=== PATIENT | female | born 1995 | race Caucasian/White ===

== ENCOUNTER 2024-07-21 15:56 | Emergency (ER) | payer MEDICAID, SELFPAY ==
[2024-07-21 15:58] VITALS: BMI 27.4
[2024-07-21 16:42] VITALS: BP 110/76; PULSE 83; RESP 16; TEMP 37; O2SAT 98; BMI 28.5
--- NOTE | 2024-07-21 17:03 | XR_ITS ---
Examination: Abdomen sonogram, Limited Date and time of exam: July 21, 2024 1751 hrs. Indications: Bilateral abdominal pain beginning 2 days ago Technique: Real-time downing scale transabdominal sonographic images of the upper abdomen obtained. Findings: 11 mm gallbladder sludge ball No gallstones Normal gallbladder wall Common bile duct 0.3 cm Pancreatic head 2.5 cm Liver 16.4 cm smooth contour No focal liver lesions Normal hepatopedal portal venous flow Impression: Gallbladder sludge ball Negative for cholelithiasis, negative for cholecystitis
--- NOTE | 2024-07-21 17:03 | PD.EDRME ---
Rapid Medical Screening Exam RME Arrival date/time: 07/21/24 15:56 29-year-old female presents to the emergency department today with complaints of abdominal pain Chief Complaint: Abdominal Pain Vital signs: Vital Signs Temperature 98.6 F 07/21/24 16:42 Pulse Rate 83 07/21/24 16:42 Respiratory Rate 16 07/21/24 16:42 Blood Pressure 110/76 07/21/24 16:42 Pulse Oximetry (%) 98 07/21/24 16:42 Oxygen Delivery Method Room Air 07/21/24 16:42
[2024-07-21 17:27] LABS: Collection Type, Urine Clean Catch
[2024-07-21 17:41] LABS: Basophils # (Auto) 0.1 Thou/mm3 (0.0-0.2); Basophils % (Auto) 1 % (0-2.5); Eosinophils # (Auto) 0.1 Thou/mm3 (0.0-0.5); Eosinophils % (Auto) 1 % (0-10); Hematocrit 43.1 % (36.0-46.0); Hemoglobin 14.9 g/dL (12.0-16.0); Immature Granulocytes % (Auto) 0 % (0-0); Immature Granulocytes Auto 0.04 Thou/mm3 (0.00-0.00); Lymphocytes # (Auto) 1.8 Thou/mm3 (1.0-4.8); Lymphocytes % (Auto) 14 % (10-50); Mean Corpuscular HGB Conc 34.6 g/dl (31.0-37.0); Mean Corpuscular Hemoglobin 30.8 pg (25.0-35.0); Mean Corpuscular Volume 89 fL (80-100); Monocytes # (Auto) 0.6 Thou/mm3 (0.0-0.8); Monocytes % (Auto) 5 % (0-12); Neutrophils # (Auto) 9.6 Thou/mm3 (1.8-7.7); Neutrophils % (Auto) 79 % (37-80); Nucleated Red Blood Cell % 0 /100 WBC (0); Platelet Count 405 Thou/mm3 (140-440); RDW Standard Deviation 40.5 fL (36.4-46.3); Red Blood Count 4.84 Miln/mm3 (4.00-5.20); White Blood Count 12.2 Thou/mm3 (3.6-11.0)
[2024-07-21 17:44] LABS: HCG Qualitative,Urine Negative
[2024-07-21 17:53] LABS: Bilirubin,Urine Negative (Negative); Blood,Urine 1+ (Negative); Clarity,Urine Clear (Clear/Hazy); Color,Urine Yellow (Lt Yel-Yel); Culture Indicated,Urine Not Indicated; Glucose, Urine Negative (Negative); Ketones,Urine 1+ (Negative); Leukocyte Esterase,Urine Positive (Negative); Nitrite,Urine Negative (Negative); Protein,Urine Negative (Neg - Trace); RBC,Urine 7 /hpf (0-3); Specific Gravity,Urine 1.016 (1.001-1.035); Squamous Epithelial Cell,Urine 12 /hpf (0-5); Urobilinogen,Urine Negative mg/dL (0.0-1.0); WBC,Urine 5 /hpf (0-5)
[2024-07-21 18:02] LABS: Alanine Aminotransferase 10 U/L (10-49); Albumin, Serum 4.7 gm/dL (3.5-5.0); Albumin/Globulin Ratio 1.5 (1.2-2.2); Alkaline Phosphatase 69 U/L (46-116); Anion Gap 7 (7-16); Aspartate Amino Transferase 13 U/L (0-34); BUN/Creatinine Ratio 9 Ratio (12-20); Bilirubin,Total 0.6 mg/dL (0.3-1.2); Blood Urea Nitrogen 7 mg/dL (9-23); Calcium 9.6 mg/dL (8.3-10.6); Calcium (Corrected) 9.6 mg/dL (8.5-10.1); Carbon Dioxide 25.1 mMol/L (20.0-31.0); Chloride 106 mMol/L (98-107); Creatinine (Component) 0.8 mg/dL (0.6-1.3); Estimated Creatinine Clearance 99.4 mL/min (>60); Globulin 3.2 gm/dL (2.3-3.5); Glucose 90 mg/dL (74-106); Lipase 29 U/L (12-53); Osmolality,Calculated 273 (275-295); Potassium 3.8 mMol/L (3.4-5.1); Sodium 138 mMol/L (136-145); Total Protein 7.9 gm/dL (5.7-8.2); eGFR > 60 See Note
[2024-07-21 19:42] VITALS: BP 133/90; PULSE 77; RESP 17; TEMP 36.8; O2SAT 98
--- NOTE | 2024-07-22 00:22 | EDNOTE_ITS ---
ED Abdominal Pain RME/HPI General Chief Complaint: Abdominal Pain Stated complaint: RIGHT LOWER ABD PAIN, DECREASE APPETTITE Time seen by provider: 07/21/24 20:42 Arrival date/time: 07/21/24 15:56 Source: patient Mode of arrival: ambulatory Limitations: no limitations RME / HPI RME / HPI narrative: 07/21/24 15:56 29-year-old female presents to the emergency department today with complaints of abdominal pain. Dr. Garcia?s Main ED Evaluation: 29-year-old female presents with a loss of appetite and dull right back pain th at began yesterday. She denies consuming greasy or fatty foods, as well as nausea or vomiting. She denies any other medical complaints. She has no history of prior surgeries and has not taken ibuprofen or acetaminophen for symptom relief. Related Data Previous Rx's ?Medication ?Instructions ?Recorded ondansetron 4 mg disintegrating 4 mg PO Q8H PRN nausea and 10/11/23 tablet vomiting #30 tabs Allergies Allergy/AdvReac Type Severity Reaction Status Date / Time No Known Allergies Allergy Verified 07/21/24 15:57 Review of Systems Review of Systems Systems Reviewed: All systems reviewed, normal except as documented Past Medical History Social History SMOKING STATUS: Never smoker ED Exam Narrative Physical exam: GENERAL: In general the patient is awake, interactive, in an emergency department gurney. HEAD/EYES/EARS/NOSE/THROAT: normo-cephalic, atraumatic, mucus membranes are moist. No cervical tenderness palpation midline. Supple neck. CARDIOVASCULAR: regular rate and regular rhythm, no murmurs, heart sounds are not distant, strong pulses in all four extremities that are equal and symmetric bilateral upper and lower extremities, normal capillary refill. CHEST/PULMONARY: normal chest rise and fall, good air movement, clear to auscultation bilaterally, normal inspiratory to expiratory ratios without evidence of respiratory distress. ABDOMEN: soft, not tender, no masses appreciated. no rebound, no callaway's sign. BACK: normal range of motion without pain. no CVA tenderness. NEUROLOGICAL: cranio-facial features are symmetric, moves all four extremities equally without obvious limitations or weakness. EXTREMITY: no tenderness to palpation over the long bones or large joints of the bilateral upper and lower extremities, no joint swelling, no joint erythema, no signs of trauma, no unilateral leg swelling and no peripheral edema. SKIN: warm, dry, well-perfused, no jaundice, no rash, no telangiectasias or petechia. PSYCH: calm, cooperative, no evidence of psychosis or agitation General Limitations: Present no limitations Course Quality Measures none Orders Category Date Time Status US gall bladder Stat Exams 07/21/24 17:03 Completed CBC Stat Lab 07/21/24 17:24 Completed Comprehensive Metabolic Panel Stat Lab 07/21/24 17:24 Completed HCG Qualitative,Urine Stat Lab 07/21/24 17:05 Completed Lipase Stat Lab 07/21/24 17:24 Completed UA, C/S IF [Urinalysis, C/S if Indicated] Stat Lab 07/21/24 17:05 Completed Vital Signs Vital signs: Vital Signs Temperature 98.6 F 07/21/24 16:42 Pulse Rate 83 07/21/24 16:42 Respiratory Rate 16 07/21/24 16:42 Blood Pressure 110/76 07/21/24 16:42 Pulse Oximetry (%) 98 07/21/24 16:42 Oxygen Delivery Method Room Air 07/21/24 16:42 Abdominal Pain MDM MDM Narrative MDM Narrative:: Patient otherwise is pain-free and has no evidence of acute pancreatitis. Patient is aware that she must watch what she eats to avoid getting the gallbladder infection. Patient's white count is slightly elevated at 12.0 however she does not have a Callaway sign. Patient is aware to return to emergency department for worsening symptoms, or any other concerns. Scribe Attestation: I, Aileen Hansen, am scribing for and in the presence of Dr. Garcia. Provider Notation: Although this document has been carefully reviewed, there may still be some phonetic and other typographical errors. These errors are purely grammatical due to imperfections in the software program and should not be construed in any way to compromise the substance of the patient's medical care during this visit. Patient data External records reviewed:: [facility] previous records Clinical information provided by:: patient Social determinants that could affect healthcare access:: none Patient has the following chronic illnesses:: see PMH How is presenting disease/condition affected by chronic disease/condition?: uneffected by Evaluation data The following diagnostics were reviewed and interpreted by me:: lab results and radiology exam(s) Lab and/or radiology exams considered but not ordered:: na Interpretation Summary: I personally reviewed the radiology data and agree with the radiologist's interpretation. Examination: Abdomen sonogram, Limited Date and time of exam: July 21, 2024 1751 hrs. Indications: Bilateral abdominal pain beginning 2 days ago Findings: 11 mm gallbladder sludge ball No gallstones Normal gallbladder wall Common bile duct 0.3 cm Pancreatic head 2.5 cm Liver 16.4 cm smooth contour No focal liver lesions Normal hepatopedal portal venous flow Impression: Gallbladder sludge ball Negative for cholelithiasis, negative for cholecystitis Dictated By: Rocael Pierce MD Medications / Prescriptions Medications or Prescriptions considered but not ordered:: na Medication administrations:: as above, if any Consultations Consultation(s) initiated? (list below): No Diagnosis Differential diagnosis abdominal pain: other (cholecystitis, cholelithiasis, UTI, GERD) Most likely diagnosis given after review of the tests above:: see clinical impression below Admission Indicated Admission indicated?: not indicated Admission Request Was there a request for admission?: No Disposition Plan Disposition Plan: Discharge Discharge Attestation Discharge Attestation: The patient and all family members were given an opportunity to ask questions and understood the discharge instructions. Discharge instructions specifically effects, indications for sooner follow up or return to the emergency department, and the expected course of current diagnosis. Patient condition: Stable Discharge Plan Plan Patient Disposition: HOME (Self Care) Patient condition on transfer: Stable Prescriptions/Referrals Prescriptions/Med Rec: No Action ondansetron 4 mg tablet,disintegrating 4 mg PO Q8H PRN (Reason: nausea and vomiting) Qty: 30 0RF Referrals: No Primary/Family,Physician [Primary Care Provider] - In 1 week Problem List Clinical Impression: Gallbladder sludge Patient/Caregiver Discharge Instructions Education Materials: What Are Gallstones Additional Instructions: Even though you have been discharged from the Emergency Department, there are several things that you should do to ensure that you receive proper care: 1. DO READ your discharge instructions as these contain important information concerning your medical care. You can take [id number] Tylenol 650 mg twice a day if needed for the next 3 to 5 days. 2. you do not have gallstones but you have sludge which is similar to very tiny gallstones. Will need to avoid certain foods that are greasy and fatty so you do not have pain and all cores infection 3. RETURN AT ONCE TO THE EMERGENCY DEPARTMENT if you have any problems or concerns. These include but are not limited to fever, worsening pain(belly, inability to tolerate food and water, or any condition that makes you question your well-being. Also, if your symptoms do not improve in the next 12-24 hours, return to the ER or seek medical care immediately.? 4. Be sure to follow up with your regular physician in the next 3 to 5 days for referral to general surgery, if needed We would like to thank you for coming today and our hope is that we served you and your family well during your stay . Print Language: Maltese Stand Alone Forms: Sharda Award Info., Patient Portal Info Letter
[2024-07-22 00:34] VITALS: RESP 18
== END 2024-07-22 00:35 | disposition home or self-care (01) ==
PROVIDERS: Nurse Practitioner Primary Care; Emergency Provider Emergency Medicine
DX: K82.8 Other specified diseases of gallbladder (principal)
CPT/HCPCS: 36415; 76705; 80053; 81001; 81025; 83690; 85025; 99284